=== PATIENT | male | born 1950 | race Caucasian/White ===

== ENCOUNTER 2018-06-24 05:41 | Day surgery (SDC) | payer MEDICARE, OTHER ==
--- NOTE | 2018-06-21 11:35 | HP ---
DATE OF SURGERY: 06/24/2018 ANTICIPATED PROCEDURE: Colonoscopy. HISTORY OF PRESENT ILLNESS: The patient needs screening colonoscopy. He had one back in 2010. PAST MEDICAL HISTORY: ALLERGIES: NONE. MEDICATIONS: Aspirin, lisinopril. PAST SURGICAL HISTORY: Gallbladder, appendectomy. SOCIAL HISTORY: Negative. FAMILY HISTORY: Negative. REVIEW OF SYSTEMS: Coronary artery disease. PHYSICAL EXAMINATION: VITAL SIGNS: Normal. CHEST: Clear. COR: Regular. ABDOMEN: No palpable organomegaly or mass. IMPRESSION: Screening colonoscopy.
[2018-06-24] MEDS ORDERED: DEMEROL 50 MG IJ ONE (05:42)
[2018-06-24] MEDS ORDERED: VERSED 5 MG/5 ML IV ONE (05:42)
[2018-06-24] MEDS ORDERED: Lactated Ringers 1,000 ML IV SCH (06:30)
[2018-06-24] MEDS ORDERED: Lactated Ringers 1,000 ML IV ONE (08:35)
[2018-06-24 10:26] VITALS: O2SAT 97
[2018-06-24 10:30] VITALS: BP 119/74; PULSE 61
[2018-06-24 10:47] LABS: 027 TOX PROD PRESUMPTIVE NEGATIVE (NEGATIVE); TOXIGENIC C. DIFF ORG NEGATIVE (NEGATIVE)
--- NOTE | 2018-06-24 12:01 | OP ---
SURGERY DATE/TIME: 06/24/2018 0900 PREOPERATIVE DIAGNOSIS: Follow up for polyps. POSTOPERATIVE DIAGNOSIS: One polyp. PROCEDURES: 1) Colonoscopy complete to cecum. 2) Hot polypectomy 1 cm at the splenic flexure. 3) Environmental Lead rectal biopsy. 4) Environmental Lead stool for Clostridium difficile, ova and parasite, and stool pathogens. SURGEON: Joshua Franklin M.D. ANESTHESIA: IV sedation, 15 minutes monitored. COMPLICATIONS: None. CONDITION: Stable. INDICATION: The patient presents for screening. He has had a chronic history of diarrhea. DESCRIPTION OF PROCEDURE: He is taken to endoscopy. A trap was used. Scope advanced to the cecum. Base of cecum, ileocecal valve satisfactory. Ascending, hepatic, transverse, splenic. In the splenic 1 cm polyp was taken to extinction with hot biopsy forceps. Environmental Lead sample submitted. Scope advanced. The rectum was normal but he has had a history of diarrhea. We took a sample of the rectum labeled "cold biopsy rectum". The patient tolerated the procedure well under IV sedation.
[2018-06-25 14:05] LABS: Source: Feces
== END 2018-06-24 10:47 | disposition home or self-care (01) ==
LOC: SDC 05:41
PROVIDERS: ATTEND Surgery
DX: Z12.11 Encounter for screening for malignant neoplasm of colon (principal); D12.3 Benign neoplasm of transverse colon; Z86.010 Personal history of colon polyps
CPT/HCPCS: 36415; 87045; 87046; 87177; 87209; 87335; 87493; 88305; 94250; J2175; J2250

== ENCOUNTER 2019-01-19 11:28 | Day surgery (SDC) | payer MEDICARE, OTHER ==
[2019-01-19] MEDS ORDERED: Xylocaine-Mpf 2% 5 Ml Vial IJ ONE (11:29)
[2019-01-19] MEDS ORDERED: Depo-Medrol 40 MG/ML IM ONE (11:29)
[2019-01-19] MEDS ORDERED: DIPRIVAN 200 MG/20 ML IV ONE (12:49)
[2019-01-19] MEDS ORDERED: Ketamine HCl 50 MG/ML ONE (12:49)
[2019-01-19 13:03] LABS: Risk Ratio 2.5
[2019-01-19] MEDS ORDERED: Lactated Ringers 1,000 ML IV ONE (13:12)
--- NOTE | 2019-01-19 14:00 | XRAY ---
7 seconds fluoroscopy time in surgery for bilateral L4-S1 MBB.
--- NOTE | 2019-01-19 14:00 | XRAY ---
Indication: Bilateral L4-S1 MBB. Intraoperative fluoroscopy was provided for 7 seconds. Single digital spot image submitted for interpretation demonstrates posterior needle tips projecting over the expected course of the left and right L4-S1 nerve roots. Correlate with intraoperative findings/report.
== END 2019-01-19 13:07 | disposition home or self-care (01) ==
LOC: SDC-PAIN 11:28
PROVIDERS: ATTEND Psychiatry & Neurology Pain Medicine
DX: M47.816 Spondylosis without myelopathy or radiculopathy, lumbar region (principal); I10 Essential (primary) hypertension; Z79.899 Other long term (current) drug therapy
CPT/HCPCS: 36415; 64493; 64494; 72020; 77002; 80061; 83721; J1030; J2704

== ENCOUNTER 2019-03-16 09:47 | Day surgery (SDC) | payer MEDICARE, OTHER ==
[2019-03-16] MEDS ORDERED: Marcaine 0.5% SDV 10 ML IJ ONE (09:48)
[2019-03-16] MEDS ORDERED: Depo-Medrol 40 MG/ML IM ONE (09:48)
[2019-03-16] MEDS ORDERED: DIPRIVAN 200 MG/20 ML IV ONE (10:49)
[2019-03-16] MEDS ORDERED: Ketamine HCl 50 MG/ML ONE (10:49)
[2019-03-16] MEDS ORDERED: Lactated Ringers 1,000 ML IV ONE (12:48)
--- NOTE | 2019-03-17 02:15 | XRAY ---
Indication: Bilateral L4-S1 MBB. Intraoperative fluoroscopy was provided for 10 seconds. A single digital PA spot image reveals the posterior spinal needle tips to be projected over the expected course of the left and right L4-S1 nerve roots. Correlate with intraoperative findings/report.
--- NOTE | 2019-03-17 12:12 | XRAY ---
10 seconds fluoroscopy time in surgery for bilateral L4-S1 RFA.
== END 2019-03-16 11:15 | disposition home or self-care (01) ==
LOC: SDC-PAIN 09:47
PROVIDERS: ATTEND Psychiatry & Neurology Pain Medicine
DX: M47.816 Spondylosis without myelopathy or radiculopathy, lumbar region (principal); I10 Essential (primary) hypertension; Z79.899 Other long term (current) drug therapy
CPT/HCPCS: 64493; 64494; 72020; 77002; J1030; J2704

== ENCOUNTER 2019-12-07 10:21 | Day surgery (SDC) | payer MEDICARE, OTHER ==
[2019-12-07] MEDS ORDERED: Depo-Medrol 40 MG/ML IM ONE (10:22)
[2019-12-07] MEDS ORDERED: Marcaine 0.5% SDV 10 ML IJ ONE (10:22)
[2019-12-07] MEDS ORDERED: Xylocaine 1% Vial 30 ML PF IJ ONE (10:22)
[2019-12-07] MEDS ORDERED: DIPRIVAN 200 MG/20 ML IV ONE (12:16)
[2019-12-07] MEDS ORDERED: Ketamine HCl 50 MG/ML ONE (12:16)
[2019-12-07] MEDS ORDERED: Lactated Ringers 1,000 ML IV ONE (12:37)
--- NOTE | 2019-12-07 14:05 | XRAY ---
Indication: Right L4-S1 RFA. Intraoperative fluoroscopy was provided for 16 seconds. 3 digital spot images submitted for interpretation demonstrates posterior needle tips projecting over the expected course of the right L4-S1 nerve roots. Correlate with intraoperative findings/report.
--- NOTE | 2019-12-07 14:12 | XRAY ---
16 seconds fluoroscopy time in surgery for right L4-S1 RFA.
== END 2019-12-07 12:48 | disposition home or self-care (01) ==
LOC: SDC-PAIN 10:21
PROVIDERS: ATTEND Psychiatry & Neurology Pain Medicine
DX: M47.816 Spondylosis without myelopathy or radiculopathy, lumbar region (principal); I10 Essential (primary) hypertension; Z79.899 Other long term (current) drug therapy
CPT/HCPCS: 64635; 64636; 72100; 77002; J1030; J2001; J2704

== ENCOUNTER 2020-01-04 12:38 | Day surgery (SDC) | payer MEDICARE, OTHER ==
[~2020-01-04 12:38] MED LIST: DIPRIVAN 200 MG/20 ML IV ONE; Ketamine HCl 50 MG/ML ONE
[2020-01-04] MEDS ORDERED: Xylocaine 1% Vial 30 ML PF IJ ONE (12:39)
[2020-01-04] MEDS ORDERED: Depo-Medrol 40 MG/ML IM ONE (12:39)
[2020-01-04] MEDS ORDERED: Marcaine 0.5% SDV 10 ML IJ ONE (12:39)
--- NOTE | 2020-01-04 14:20 | XRAY ---
Indication: Left L4-S1 RFA. Intraoperative fluoroscopy was provided for 18 seconds. 3 digital spot images submitted for interpretation demonstrates posterior needle tips projecting over the the expected course of the left L4-S1 nerve roots. Correlate with intraoperative findings/report.
--- NOTE | 2020-01-04 14:22 | XRAY ---
18 seconds fluoroscopy time in surgery for left L4-S1 RFA.
[2020-01-04] MEDS ORDERED: Lactated Ringers 1,000 ML IV ONE (16:37)
== END 2020-01-04 13:56 | disposition home or self-care (01) ==
LOC: SDC-PAIN 12:38
PROVIDERS: ATTEND Psychiatry & Neurology Pain Medicine
DX: M47.816 Spondylosis without myelopathy or radiculopathy, lumbar region (principal); I10 Essential (primary) hypertension; Z79.899 Other long term (current) drug therapy
CPT/HCPCS: 64635; 64636; 72100; 77002; J1030; J2001; J2704

== ENCOUNTER 2020-03-07 13:21 | Day surgery (SDC) | payer MEDICARE, OTHER ==
[2020-03-07] MEDS ORDERED: Xylocaine 1% Vial 30 ML PF IJ ONE (13:22)
[2020-03-07] MEDS ORDERED: BUPIVACAINE 0.5% VIAL IJ ONE (13:22)
[2020-03-07] MEDS ORDERED: Depo-Medrol 40 MG/ML IM ONE (13:22)
--- NOTE | 2020-03-07 21:49 | XRAY ---
Indication: Left shoulder injection. Intraoperative fluoroscopy was provided for 8 seconds. Single digital spot image submitted for interpretation demonstrates needle tip projecting over the left glenohumeral joint superiorly. Small amount of contrast injected for needle tip placement. Correlate with intraoperative findings/report.
--- NOTE | 2020-03-07 21:51 | XRAY ---
Indication: Right shoulder injection. Intraoperative fluoroscopy was provided for 7 seconds. Single digital spot image submitted for interpretation demonstrates needle tip projecting over the right glenohumeral joint superiorly. Small amount of contrast injected for needle tip placement. Correlate with intraoperative findings/report.
--- NOTE | 2020-03-07 21:56 | XRAY ---
8 seconds of fluoroscopy was used in surgery for a left intra-articular shoulder injection.
--- NOTE | 2020-03-07 22:06 | XRAY ---
7 seconds of fluoroscopy was used in surgery for a right intra-articular shoulder injection.
== END 2020-03-07 15:47 | disposition home or self-care (01) ==
LOC: SDC-PAIN 13:21
PROVIDERS: ATTEND Psychiatry & Neurology Pain Medicine
DX: M19.012 Primary osteoarthritis, left shoulder (principal); M19.011 Primary osteoarthritis, right shoulder; M25.511 Pain in right shoulder; M25.512 Pain in left shoulder; I10 Essential (primary) hypertension; Z79.899 Other long term (current) drug therapy
CPT/HCPCS: 20610; 73030; 77002; J1030; J2001; Q9966

== ENCOUNTER 2020-07-18 13:41 | Day surgery (SDC) | payer MEDICARE, OTHER ==
[2020-07-18] MEDS ORDERED: Xylocaine 1% Vial 30 ML PF IJ ONE (13:42)
[2020-07-18] MEDS ORDERED: Depo-Medrol 40 MG/ML IM ONE (13:42)
[2020-07-18] MEDS ORDERED: BUPIVACAINE 0.5% VIAL IJ ONE (13:42)
--- NOTE | 2020-07-18 18:17 | XRAY ---
Indication: Right shoulder injection. Intraoperative fluoroscopy was provided for 17 seconds. 2 digital spot images submitted for interpretation demonstrates needle tip projecting over the right glenohumeral joint superiorly. Small amount of contrast injected for needle tip placement. Correlate with intraoperative findings/report.
--- NOTE | 2020-07-18 18:17 | XRAY ---
Indication: Left shoulder injection. Intraoperative fluoroscopy was provided for 10 seconds. Single digital spot image submitted for interpretation demonstrates needle tip projecting over the left glenohumeral joint superiorly. Small amount of contrast injected for needle tip placement. Correlate with intraoperative findings/report.
--- NOTE | 2020-07-18 18:19 | XRAY ---
17 seconds of fluoroscopy was used in surgery for a right intra-articular shoulder injection.
--- NOTE | 2020-07-18 18:22 | XRAY ---
10 seconds for fluoroscopy was used in surgery for a left intra-articular shoulder injection.
== END 2020-07-18 17:05 | disposition home or self-care (01) ==
LOC: SDC-PAIN 13:41
PROVIDERS: ATTEND Psychiatry & Neurology Pain Medicine
DX: M19.012 Primary osteoarthritis, left shoulder (principal); M19.011 Primary osteoarthritis, right shoulder; I10 Essential (primary) hypertension
CPT/HCPCS: 73030; 77002; J1030; J2001

== ENCOUNTER 2022-02-05 08:57 | Day surgery (SDC) | payer MEDICARE, OTHER ==
[2022-02-05] MEDS ORDERED: Depo-Medrol 40 MG/ML IM ONE (08:58)
[2022-02-05] MEDS ORDERED: XYLOCAINE-MPF 1% 5ML SDV IJ ONE (08:58)
[2022-02-05] MEDS ORDERED: Marcaine Mpf 0.5% Vial 30 Ml IJ ONE (08:58)
[2022-02-05] MEDS ORDERED: DIPRIVAN 200 MG/20 ML IV ONE (10:28)
[2022-02-05] MEDS ORDERED: Lactated Ringers 1,000 ML IV ONE (12:25)
--- NOTE | 2022-02-05 12:35 | XRAY ---
Indication: Right L4-S1 RFA. Intraoperative fluoroscopy provided for 28 seconds. 3 digital spot image submitted for interpretation demonstrates posterior needle tips projecting over the expected right L4-S1 nerve roots. Correlate with intraoperative findings/report.
--- NOTE | 2022-02-05 12:38 | XRAY ---
28 seconds fluoroscopy time in surgery for right L4-S1 RFA.
== END 2022-02-05 10:55 | disposition home or self-care (01) ==
LOC: SDC-PAIN 08:57
PROVIDERS: ATTEND Psychiatry & Neurology Pain Medicine
DX: M47.816 Spondylosis without myelopathy or radiculopathy, lumbar region (principal); Z79.899 Other long term (current) drug therapy
CPT/HCPCS: 64635; 64636; 72100; 77002; J1030; J2704

== ENCOUNTER 2022-02-12 11:47 | Day surgery (SDC) | payer MEDICARE, OTHER ==
[2022-02-12] MEDS ORDERED: XYLOCAINE-MPF 1% 5ML SDV IJ ONE (11:48)
[2022-02-12] MEDS ORDERED: Marcaine Mpf 0.5% Vial 30 Ml IJ ONE (11:48)
[2022-02-12] MEDS ORDERED: Depo-Medrol 40 MG/ML IM ONE (11:48)
[2022-02-12] MEDS ORDERED: Lactated Ringers 1,000 ML IV ONE (15:06)
--- NOTE | 2022-02-12 16:49 | XRAY ---
Indication: Left L4-S1 RFA. Intraoperative fluoroscopy provided for 20 seconds. 5 digital spot images submitted for interpretation demonstrates posterior needle tips projecting over the expected left L4-S1 nerve roots. Correlate with intraoperative findings/report.
--- NOTE | 2022-02-12 17:21 | XRAY ---
20 seconds of fluoroscopy was used in surgery for a left L4-S1 RFA.
== END 2022-02-12 14:07 | disposition home or self-care (01) ==
LOC: SDC-PAIN 11:47
PROVIDERS: ATTEND Psychiatry & Neurology Pain Medicine
DX: M47.816 Spondylosis without myelopathy or radiculopathy, lumbar region (principal); Z79.899 Other long term (current) drug therapy
CPT/HCPCS: 64635; 64636; 72100; 77002; J1030

== ENCOUNTER 2024-07-26 08:50 | Day surgery (SDC) | payer MEDICARE ==
[~2024-07-26 08:50] MED LIST changes: +BETADINE 5% OPHTHALMIC 30 ML OP ONE; -DIPRIVAN 200 MG/20 ML IV ONE; -Ketamine HCl 50 MG/ML ONE; +TRIAMCINOLONE 15 MG/ML INJ INTRAOP ONE; +VIGAMOX/BSS 0.15% SYR IO ONE
[2024-07-26] MEDS: TETRACAINE 0.5% STERI-UNIT SOL OP ONE ×2 (09:25→10:02)
[2024-07-26] MEDS: Sodium Chloride 0.9% 10 ML FLUSH Syringe IJ ONE (09:25)
[2024-07-26] MEDS: Ak-Dilate OPHTHALMIC*** 1.065 ML, Cyclogyl 1% OPHTH SOL 1.065 ML, GATIFLOXACIN 0.5% OPH... OP ONE (09:26)
[2024-07-26 09:27] LABS: ANION GAP 11.6 MEQ/L (5-15); Calcium 9.4 mg/dL (8.4-10.2); Creatinine 1 0.87 mg/dL (0.66-1.25); EST GLOMERULAR FILTRATION RATE 92.3 ML/MIN; Potassium 4.1 mmol/L (3.5-5.1)
[2024-07-26] MEDS ORDERED: Zofran 4 MG/2 ML VIAL IV PRN (10:15)
[2024-07-26] MEDS ORDERED: Epinephrine Preservative Free 1 MG/ML IJ ONE (10:30)
[2024-07-26] MEDS ORDERED: DEXMEDETOMIDINE 80 MCG/20ML-NS IV ONE (10:30)
[2024-07-26] MEDS ORDERED: propofoL IV ONE ×2 (11:34→11:43)
[2024-07-26 11:54] VITALS: RESP 16
[2024-07-26] MEDS: ACETAZOLAMIDE 250 MG TABLET PO ONE (11:55)
[2024-07-26 12:08] VITALS: BP 103/70; PULSE 65; TEMP 97.8; O2SAT 93
== END 2024-07-26 12:19 | disposition home or self-care (01) ==
LOC: SDC 08:50
PROVIDERS: ATTEND Ophthalmology
DX: H25.812 Combined forms of age-related cataract, left eye (principal); I10 Essential (primary) hypertension
CPT/HCPCS: 36415; 80048; 93005; C1780; J0171; J2704; A9270-GY